=== PATIENT | female | born 2000 | race Caucasian/White ===

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

== ENCOUNTER → 2020-08-16 14:25 | Outpatient (BNVA) | payer OTHER, SELFPAY | PROVIDERS: Family Provider Family Medicine; PCP Family Medicine; Visit Provider Nurse Practitioner Women's Health | DX: R30.0 Dysuria (principal); A60.00 Herpesviral infection of urogenital system, unspecified; A60.1 Herpesviral infection of perianal skin and rectum | CPT/HCPCS: 80053; 81000 ==

== ENCOUNTER → 2022-06-26 13:45 | Outpatient (BNVA) | payer OTHER, MEDICAID, SELFPAY | PROVIDERS: Family Provider Family Medicine; PCP Family Medicine; Visit Provider Nurse Practitioner Women's Health | DX: N92.6 Irregular menstruation, unspecified (principal) | CPT/HCPCS: 81025 ==

== ENCOUNTER → 2022-07-17 10:51 | Outpatient (BNVA) | payer OTHER, MEDICAID, SELFPAY | PROVIDERS: Family Provider Family Medicine; PCP Family Medicine; Visit Provider Obstetrics & Gynecology | DX: Z36.87 Encounter for antenatal screening for uncertain dates (principal) | CPT/HCPCS: 76801 ==

== ENCOUNTER → 2022-07-31 14:39 | Outpatient (BNVA) | payer OTHER, MEDICAID, SELFPAY | PROVIDERS: Family Provider Family Medicine; PCP Family Medicine; Visit Provider Obstetrics & Gynecology | DX: Z34.90 Encounter for supervision of normal pregnancy, unspecified, unspecified trimester (principal); Z12.4 Encounter for screening for malignant neoplasm of cervix | CPT/HCPCS: 80307; 81000; 83036; 85027; 86592; 86762; 86803; 86850; 86900; 87086; 87340; 87491; 87591; 87661; 87806; 88175 ==

== ENCOUNTER → 2022-09-11 08:21 | Outpatient (BNVA) | payer OTHER, MEDICAID, SELFPAY | PROVIDERS: Family Provider Family Medicine; PCP Family Medicine; Visit Provider Obstetrics & Gynecology | DX: Z36.9 Encounter for antenatal screening, unspecified (principal) | CPT/HCPCS: 76805 ==

== ENCOUNTER → 2022-10-09 09:30 | Outpatient (BNVA) | payer OTHER, MEDICAID, SELFPAY | PROVIDERS: Family Provider Family Medicine; PCP Family Medicine; Visit Provider Nurse Practitioner Women's Health | DX: Z34.90 Encounter for supervision of normal pregnancy, unspecified, unspecified trimester (principal) | CPT/HCPCS: 82950; 84315 ==

== ENCOUNTER 2022-10-29 19:38 | Outpatient (CLI) | payer OTHER, MEDICAID, SELFPAY ==
[2022-10-29] VITALS (9 sets, daily range): BP systolic 104–119; BP diastolic 55–64; PULSE 72–85; RESP 17–18; TEMP 36.4; BMI 30.1
[2022-10-29 20:39] LABS: Add Urine Microscopic? NO; Charge for UA Resulting for Rev
[2022-10-29 20:40] LABS: Basophils % 0.2 %; Eosinophils % 0.3 %; Hematocrit 34.2 % (37.0-47.0); Hemoglobin 11.8 g/dL (11.5-15.3); Lymphocytes # 1.6 10^3/uL (0.8-4.8); Lymphocytes % 25.7 %; Mean Corpuscular HGB Conc 34.5 g/dL (30.0-36.0); Mean Corpuscular Hemoglobin 30.4 pg (28.0-34.0); Mean Corpuscular Volume 88.1 fl (81-99); Mean Platelet Volume 10.2 fL (7.4-10.4); Monocytes # 0.4 10^3/uL (0.2-0.9); Monocytes % 6.1 %; Neutrophils # 4.06 10^3/uL (1.8-7.7); Neutrophils % 67.5 %; Nucleated Red Blood Cells % 0 %; Platelet Count 210 10^3/cmm (130-400); Red Blood Count 3.88 10^6/uL (4.1-5.3); Red Cell Distribution Width 13.2 % (12.1-15.1)
[2022-10-29 20:57] LABS: Alanine Aminotransferase 9 U/L (0-33); Albumin Level 3.5 g/dL (3.5-5.2); Alkaline Phosphatase 67 U/L (35-105); Anion Gap 11.2 (5-19); Aspartate Amino Transferase 13 U/L (0-32); Blood Urea Nitrogen 6 mg/dL (6-20); Calcium 8.6 mg/dL (8.5-10.5); Carbon Dioxide 24 mmol/L (22-29); Chloride 105 mmol/L (98-107); Globulin 2.4 g/dL (1.3-4.6); Glomerular Filtration Rate 199.6 mL/min (90-130); Glucose 95 mg/dL (65-115); Osmolality Calculated 281 mOsm/kg (285-295); Potassium 3.2 mmol/L (3.5-5.1); Sodium 137 mmol/L (136-145); Total Bilirubin 1.3 mg/dL (0.15-1.2); Total Protein 5.9 g/dL (6.6-8.7); Uric Acid 3.1 mg/dL (2.4-5.7)
[2022-10-29 21:01] LABS: Urine Creatinine 91 mg/dL (28-217); Urine Protein Random 10 mg/dL
[2022-10-29 21:07] LABS: UPRO/UCREAT Ratio 0.11 mg/mg CR
[2022-10-29 21:11] LABS: Bilirubin Urine Neg (Negative); Blood Urine Neg (Negative); Glucose Urine UA Norm (Normal); Ketones Urine Negative (Negative); Leukocyte Esterase Urine Negative (Negative); Nitrate Urine Negative (Negative); Protein Urine Neg (Negative); Specific Gravity, Urine 1.015 (1.005-1.030); Urine Appearance Clear (CLEAR); Urine Color Yellow (Yellow); Urobilinogen Urine 4 mg/dL (Negative); pH Urine 7 (5-7)
== END 2022-10-29 21:24 | disposition home or self-care (01) ==
LOC: OPOB 19:39 → OBGYN 19:40
PROVIDERS: Family Provider Family Medicine; PCP Family Medicine; Visit Provider Obstetrics & Gynecology
DX: O16.9 Unspecified maternal hypertension, unspecified trimester (principal); Z3A.00 Weeks of gestation of pregnancy not specified; R51.9 Headache, unspecified
CPT/HCPCS: 36415; 59025; 80053; 81003; 82570; 84156; 84550; 85025; 99211

== ENCOUNTER → 2022-11-13 08:40 | Outpatient (BNVA) | payer OTHER, MEDICAID, SELFPAY | PROVIDERS: Family Provider Family Medicine; PCP Family Medicine; Visit Provider Nurse Practitioner Women's Health | DX: O26.899 Other specified pregnancy related conditions, unspecified trimester (principal); Z67.91 Unspecified blood type, Rh negative; A60.1 Herpesviral infection of perianal skin and rectum | CPT/HCPCS: 84315; 85025; 86850 ==

== ENCOUNTER 2022-11-15 15:19 | Outpatient (CLI) | payer OTHER, MEDICAID, SELFPAY ==
[2022-11-15 19:24] LABS: Total Volume, Urine 1500 mL
[2022-11-16 21:07] LABS: Urine Total Protein 9.7 mg/dL (0-150); Urine Total Protein 24 Hour 145.5 mg/24hr (0-150)
== END 2022-11-15 15:20 | disposition home or self-care (01) ==
PROVIDERS: PCP Family Medicine; Visit Provider Nurse Practitioner Women's Health
DX: Z34.90 Encounter for supervision of normal pregnancy, unspecified, unspecified trimester (principal)
CPT/HCPCS: 84156

== ENCOUNTER 2023-01-03 16:30 | Outpatient (CLI) | payer OTHER, MEDICAID, SELFPAY ==
[2022-10-29 19:59] VITALS: RESP 18
[2023-01-03] VITALS (9 sets, daily range): BP systolic 119–140; BP diastolic 62–80; PULSE 72–83; RESP 18; BMI 32.3
[2023-01-03 17:45] LABS: Add Urine Culture? No; Bacteria Urine 2+ /hpf; Bilirubin Urine Neg (Negative); Blood Urine Neg (Negative); Glucose Urine UA Norm (Normal); Ketones Urine 1+ (Negative); Leukocyte Esterase Urine Negative (Negative); Nitrate Urine Negative (Negative); Protein Urine Neg (Negative); Urine Appearance Hazy (CLEAR); Urine Color Yellow (Yellow); Urobilinogen Urine 4 mg/dL (Negative); pH Urine 6.5 (5-7)
--- NOTE | 2023-01-03 18:43 | P.TNLD_ITS ---
OB L&D Triage Visit Information: Date of evaluation: 01/03/23 Comments/Additional reason(s) for visit: 22-year-old female G1, P0 observed in labor and delivery with complaints of upper abdominal pain, patient points to right side of uterus. She admits to good movement, denies leakage of fluid or vaginal bleeding. She denies nausea vomiting, headaches or blurred vision, chest pain or shortness of breath. 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 EFM?category 1 with occasional contraction UA reviewed VSS, afebrile Abdomen?soft, no guarding, negative CVA tenderness Extremities?no edema negative Homans' sign Evaluation: Variability: Moderate (11-25) monitor accelerations: Present 15x15 monitor decelerations: None Laboratory results: Laboratory Tests 01/03/23 17:00 Urine Color Yellow Urine Appearance Hazy A Urine pH 6.5 Ur Specific Gravit y 1.020 Urine Protein Neg Urine Glucose (UA) Norm Urine Ketones 1+ H Urine Blood Neg Urine Nitrate Negative Urine Bilirubin Neg Urine Urobilinogen 4 H Ur Leukocyte Debbie ase Negative Urine RBC None Urine WBC None Ur Squamous Epith Cells 10-15 H Amorphous Sediment Not Reportable Urine Bacteria 2+ H Vital signs: Vital Signs - 24 hr 01/03/23 16:46 01/03/23 17:01 01/03/23 17:16 Pulse Rate 74 80 75 Blood Pressure 136/80 140/66 124/67 01/03/23 17:31 01/03/23 17:46 01/03/23 18:01 Pulse Rate 83 73 77 Blood Pressure 134/69 126/62 121/64 01/03/23 18:17 01/03/23 18:31 Pulse Rate 74 72 Blood Pressure 119/63 126/72 Care AGUILA Calculator Estimated Delivery Date Method Current WG Current Estimate 02/04/23 Ultrasound #2 35w 3d Other Estimates 02/07/23 LMP (Certain) 35w 0d 02/03/23 Ultrasound #1 35w 4d Specific Issues/Plans * Genital herpes; plan suppression at 36 weeks * Rh NEGATIVE Final Diagnosis Final Diagnosis (1) Supervision of normal : Plan: A. Nonspecific abdominal pain P. Discharge to home, counseled patient on no heavy lifting pushing or pulling. If pain continues or becomes increasingly worse patient is to return to labor and delivery. Patient is to follow-up as scheduled with her management trainee for continued care. Status: Acute Code(s): Z34.90 - Encounter for supervision of normal , unspecified, unspecified trimester Coding Level of Care Code Acute Code for Chg Fwd Diagnoses Supervision of normal Z34.90
[2023-01-03 18:44] LABS: Urine Creatinine 103 mg/dL (28-217); Urine Protein Random 18 mg/dL
[2023-01-03 18:47] LABS: UPRO/UCREAT Ratio 0.17 mg/mg CR
--- NOTE | 2023-01-03 18:48 | PC.NURSE ---
[address] SAM URINE PROTEIN / CRET RATIO OF .17
== END 2023-01-03 18:49 | disposition home or self-care (01) ==
LOC: OPOB 16:35 → OBGYN 16:36
PROVIDERS: Obstetrics & Gynecology; PCP Family Medicine; Visit Provider Obstetrics & Gynecology
DX: O26.899 Other specified pregnancy related conditions, unspecified trimester (principal); Z3A.00 Weeks of gestation of pregnancy not specified; R10.11 Right upper quadrant pain
CPT/HCPCS: 12345; 59025; 81001; 82570; 84156; 99211

== ENCOUNTER → 2023-01-08 10:00 | Outpatient (BNVA) | payer MEDICAID, SELFPAY | PROVIDERS: PCP Family Medicine; Visit Provider Nurse Practitioner Women's Health | DX: Z34.90 Encounter for supervision of normal pregnancy, unspecified, unspecified trimester (principal) | CPT/HCPCS: 80053; 84315; 84550; 85025; 87081 ==

== ENCOUNTER 2023-01-09 11:35 | Outpatient (CLI) | payer MEDICAID, SELFPAY ==
[2023-01-09 13:40] LABS: Total Volume, Urine 1450 mL; Urine Total Protein 24 Hour 188.5 mg/24hr (0-150)
== END 2023-01-09 11:36 | disposition home or self-care (01) ==
LOC: LAB 11:37
PROVIDERS: PCP Family Medicine; Visit Provider Nurse Practitioner Women's Health
DX: O16.3 Unspecified maternal hypertension, third trimester (principal); Z3A.00 Weeks of gestation of pregnancy not specified
CPT/HCPCS: 84156

== ENCOUNTER 2023-01-11 14:46 | Outpatient (CLI) | payer MEDICAID, SELFPAY ==
[2023-01-11 14:45] VITALS: BMI 31.4
--- NOTE | 2023-01-11 14:53 | US_ITS ---
WS: [id number] BIOPHYSICAL PROFILE AMNIOTIC FLUID HISTORY: WELLBEING COMPARISON: 09/11/2022 position: Vertex. Cardiac activity: 131 bpm. Cervix: Poorly visualized due to head. Placenta: Posterior and fundal, no previa. Placenta grade: 1 Parameters are as follows: Breathin Movement: 2 Tone: 2 Fluid volume: 2 Amniotic Fluid Index: 13.2 cm; single deep vertical pocket 3.8 cm. US/US OB BPP wo NST 08699 IMPRESSION: 1. Biophysical profile score: 8/8. 2. Normal amniotic fluid.
[2023-01-11 15:00] VITALS: BP 135/75; PULSE 66
[2023-01-11 15:33] VITALS: BP 137/84; PULSE 69
[2023-01-11 15:54] VITALS: BP 132/84; PULSE 73
[2023-01-11 15:57] LABS: Urine Creatinine 138 mg/dL (28-217); Urine Protein Random 20 mg/dL
[2023-01-11 16:00] LABS: UPRO/UCREAT Ratio 0.14 mg/mg CR
[2023-01-11 16:13] VITALS: BP 119/70; PULSE 72
[2023-01-11 16:21] VITALS: BP 119/70; PULSE 72
== END 2023-01-11 16:23 | disposition home or self-care (01) ==
LOC: OPOB 14:47 → OBGYN 14:47
PROVIDERS: PCP Family Medicine; Visit Provider Obstetrics & Gynecology
DX: O24.419 Gestational diabetes mellitus in pregnancy, unspecified control (principal); Z3A.00 Weeks of gestation of pregnancy not specified
CPT/HCPCS: 36415; 59025; 76819; 82570; 84156; 84315; 99211

== ENCOUNTER 2023-01-14 06:20 | Inpatient (IN) | payer OTHER, MEDICAID, SELFPAY ==
[2023-01-14] VITALS (47 sets, daily range): BP systolic 104–151; BP diastolic 55–93; PULSE 61–87; RESP 16; TEMP 36.2–36.6; BMI 31.6
[2023-01-14 07:13] LABS: Basophils % 0.3 %; Eosinophils % 0.5 %; Hematocrit 33.7 % (37.0-47.0); Hemoglobin 11.2 g/dL (11.5-15.3); Lymphocytes # 1.7 10^3/uL (0.8-4.8); Lymphocytes % 25.7 %; Mean Corpuscular HGB Conc 33.2 g/dL (30.0-36.0); Mean Corpuscular Hemoglobin 27.9 pg (28.0-34.0); Mean Corpuscular Volume 83.8 fl (81-99); Monocytes # 0.5 10^3/uL (0.2-0.9); Monocytes % 8.2 %; Neutrophils % 64.8 %; Nucleated Red Blood Cells % 0 %; Platelet Count 230 10^3/cmm (130-400); Red Blood Count 4.02 10^6/uL (4.1-5.3); Red Cell Distribution Width 13.3 % (12.1-15.1); White Blood Count 6.5 10^3/uL (4.0-10.0)
[2023-01-14] MEDS: ondansetron 2 mg/ML SDV 2 mL 4 MG IVP (07:56)
[2023-01-14] MEDS: miSOPROStol 100 mcg tablet 25 MCG VAGINAL ×3 (07:57→17:22)
[2023-01-14] MEDS: dextrose 5%-lactated ringers 1,000 ML 125 ML IV ×2 (08:00→20:16)
[2023-01-14] MEDS: acetaminophen 325 mg Tablet 650 MG PO (22:41)
[2023-01-15] VITALS (44 sets, daily range): BP systolic 106–182; BP diastolic 56–102; PULSE 50–141; RESP 15–19; TEMP 36.7–37; O2SAT 98–99
[2023-01-15] MEDS: fentaNYL 50 mcg/mL INJ 2mL IVP ×5 (00:12→07:17)
[2023-01-15] MEDS: lactated ringers 1,000 ML 999 ML IV ×2 (00:14→10:49)
[2023-01-15] MEDS: hyDROXYzine 25 mg Capsule 50 MG PO ×2 (01:20→07:18)
[2023-01-15] MEDS: dextrose 5%-lactated ringers 1,000 ML 125 ML IV (05:38)
--- NOTE | 2023-01-15 08:08 | P.PN_ITS ---
Subjective Subjective: 20-year-old female with estimated stational age at 37 weeks with hypertension. Referring increased contractions pain, and requested an epidural. Vitals/I&O/Wt Last Vital Signs Temp 97.9 F 01/14/23 15:16 Pulse 78 01/15/23 08:25 Resp 15 01/15/23 07:17 BP 127/69 01/15/23 08:25 O2 Del Method 01/14/23 06:00 01/14/23 01/15/23 01/15/23 22:59 06:59 14:59 Intake Total 1168.75 / 1168.75 1831.25 / 3000.00 Balance 1168.75 / 1168.75 1831.25 / 3000.00 Weight last 48 hrs Weight 94.347 kg Physical Exam Narrative: GA: Alert and oriented ?3. Lungs: Clear to auscultation bilaterally. Heart: Regular rhythm and rate. Abdomen: Gravid, full the height equals dates, nontender. RECRUITING ASSOCIATE: SVE; dilation: 5 cm, effacement: 80%, station: +1, presentation: Cephalic, membranes: Intact. Extremities: no edema, no cyanosis, no calves pain. heart tracing: Basal rate: 140's bpm, Variability: moderate, Accelerations: present, Decelerations: absent, Contraction: q3min. Data 01/14/23 06:15 A&P Assessment and plan (1) Active labor at term: Mrs. Dale 22-year-old female with an estimated stational age at 37 weeks, complicated by gestational hypertension, was admitted for induction, misoprostol was given for cervical ripening but had a slow response and was allowed to to rest overnight. She complained of increased pelvic pain. Epidural was ordered. heart tracing category 1. (2) Gestational hypertension: (3) Rh negative status during : Attestations Medical Necessity Statement*: In my professional opinion poor admitting diagnosis Coding Level of Care Code Acute Code for Chg Fwd Diagnoses Active labor at term Gestational hypertension O13.9 Rh negative status during O26.899; Z67.91
--- NOTE | 2023-01-15 09:05 | ANES.PREANE2 ---
Pre-Anesthetic Assessment Height/Weight: Height 1.73 m Weight 94.347 kg Temp Pulse Resp BP Pulse Ox O2 Del Method 97.9 F 76 15 139/63 98 01/14/23 15:16 01/15/23 09:01 01/15/23 07:17 01/15/23 09:01 01/15/23 08:54 01/14/23 06:00 Epidural Familial anesthetic complications: None Was Beta Vanessa taken within 24 hours: N/A Was Clonidine taken within 24 hours: N/A Social No alcohol and No tobacco Exam alert, oriented x 3, clear to auscultation bilaterally and regular rate & rhythm Airway Mallampati: Class II Dentition: full CV/HEM Hypertension Anesthetic Plan ASA status: 2 Anesthesia: Regional (specify below) Risk of > 500 ml blood loss (7ml/kg in children): Yes, adequate IV access and fluids planned Medications/Allergies Home Medications Medication Instructions Recorded Confirmed Last Taken Type prenat.vits,shane,pws-vtjb-xcxul 1 tab PO DAILY 06/26/22 01/14/23 01/13/23 History Allergies Allergy/AdvReac Type Severity Reaction Status Date / Time metronidazole Allergy ALGY-Rash Verified 01/11/23 13:39 Penicillins Allergy ALGY-Rash Verified 01/11/23 13:39 Current Medications Generic Name Dose Route Start Last Admin Trade Name Durgaq PRN Reason Stop Dose Admin Acetaminophen 650 mg 01/14/23 07:36 01/14/23 22:41 Acetaminophen 325 Mg Tablet PO 650 mg Q6H PRN Administration Mild pain or temp > 100.4 Fentanyl 25 - 100 mcg 01/14/23 07:36 01/15/23 07:17 Fentanyl 50 Mcg/Ml Inj 2ml IVP 100 mcg Q1H PRN Administration SEVERE PAIN Hydroxyzine Pamoate 50 mg 01/14/23 07:36 01/15/23 07:18 Hydroxyzine 25 Mg Capsule PO 50 mg QID PRN Administration sleep, agitation or itching Dextrose/Lactated Ringer's 1,000 mls @ 125 mls/hr 01/14/23 07:45 01/15/23 05:38 Dextrose 5%-Lactated Ringers IV 125 mls/hr .Q8H ANTONINA Administration Lactated Ringer's 1,000 mls @ 999 mls/hr 01/14/23 07:36 01/15/23 01:15 Lactated Ringers IV Infused .Q1H1M PRN Infusion Per L&D Rescitation Protocol Vancomycin HCl 1,900 mg/ 500 mls @ 333.333 mls/hr 01/15/23 09:00 01/15/23 08:52 Sodium Chloride IV 333.33 mls/hr Q8H ANTONINA Administration Ondansetron HCl 4 mg 01/14/23 07:36 01/14/23 07:56 Ondansetron 2 Mg/Ml Sdv 2 Ml IVP 4 mg Q4H PRN Administration NAUSEA AND VOMITING PFSH Anesthesia Medical History Genital herpes No pertinent past medical history neghx: htn,dm,thyroid,DVT/PE PCP: none Surgical History H/O oral surgery 2008,2015 Hx of knee surgery (~06/01/21) L knee, ACL repair Family History Mother Ovarian cancer dx age 20-- did not a hyst or radiation/chemo; had never required this Grandfather Diabetes Maternal Hypertension Maternal Grandmother Diabetes Maternal Stroke Maternal Hypertension Maternal Denies family history of Colon cancer Heart disease Hypercholesteremia Breast cancer Uterine cancer Thyroid disease Social History Smoking and tobacco status: never smoked Female Reproductive History : 1 Data Anesthesia 01/14/23 06:15 Short CBC 01/14/23 Range/Units 06:15 WBC 6.5 (4.0-10.0) 10^3/uL Hgb 11.2 L (11.5-15.3) g/dL Hct 33.7 L (37.0-47.0) % MCV 83.8 (81-99) fl Plt Count 230 (130-400) 10^3/cmm Neut % (Auto) 64.8 % Neut # (Auto) 4.20 (1.8-7.7) 10^3/uL Cardiac Studies: No Data to Display Anesthesia Procedures Epidural Time Out Performed: Yes Consents Signed: Procedure Consent Consent: requested by attending/covering physician, from patient, from other, risks and benefits reviewed and patient agrees to proceed Lumbar Level: L3-L4 Epidural position: sitting Epidural procedure: sterile prep of area, 1% lidocaine to numb the area, 18 g needle, negative for paresthesia passed, neg for paresthesia, test dose given, 1.5% xylocaine 1:200k epi (5 cc), 0.2% Ropivacaine bolus ml (5), placed PCEA, no systemic response, sterile dressing applied, L.U.D. no apparent complications and 0.2% Ropiavacaine @ mls/hr (13) Additional Comments: IDALIA ast 5 cm, threaded to 11 cm
--- NOTE | 2023-01-15 09:42 | P.PCNOB_ITS ---
Delivery Note: Date of delivery: January 15, 2023 Pre-delivery diagnoses: Term . Nonreassuring status Gestational hypertension. Rh-. History of herpes Post-delivery diagnoses: Term delivered. Nonreassuring status Gestational hypertension. Rh-. History of herpes Procedure: Vacuum-assisted vaginal delivery Delivering Physician: Don Brizuela MD Estimated blood loss (mL): 300 Delivery: The patient was noted to be complete and pushing, so was placed in the dorsal lithotomy position, prepped and draped in the usual sterile fashion for a vaginal delivery. Pt. Noted to have epidural anesthesia. Decision was made to apply the Kiwi vacuum @ 37 weeks for the above indications. The mother was informed heart rate with decelarations and asked for her consent for application of the vaccum. A Red daja cath had been used to insure the bladder was emptied. Adequate anesthesia was confirmed but epidural was not optimal and a pudendal block was administer. The edges of the cup of the Kiwi vacuum were placed approximately 3cm from the anterior fontanelle, and just at the edge of the posterior fontanelle. The center of the cup was placed over the flexion point. The edges of the cup were swept with a finger to ensure that no maternal tissues were entrapped. After correct placement of the cup was confirmed, vacuum pressure was raised to 500-600 mmHg. Gentle traction along the axis of the pelvic curve down then up, was applied in concert with maternal pushing. 3 # applications. 2# pop-offs. After head delivered, the vacuum pressure released and was taken off the baby's head. Pt. Noted to have epidural anesthesia. At 0931 the patient delivered a viable (gestational age) fetus weighing 3165 g with scores of 7 and 9 at one and five minutes, respectively. The vertex was delivered vacuum assisted over intact perineum. The patient was asked to push and the head delivered in the ALIN position, over an intact perineum. A nuchal cord was checked and 1 noted, and believed around head as necessary. The anterior shoulder delivered easily and the posterior shoulder followed. The remainder of the was easily delivered and the oropharynx and nasopharynx was again bulb suctioned. The was noted to have spontaneous cry and spontaneous movement of all four extremities. The cord was clamped x 2 and cut and noted to have 2 arteries and one vein. The infant was passed to the warmer where nursing and dormitory counselor personnel were in attendance. Cord blood sample was then obtained. The placenta delivered intact spontaneously and the uterus was explored. Pitocin 20 units in 1L LR was initiated. Examination of the cervix, vagina and perineal areas were inspected for lacerations and did not reveal any lacerations. A vaginal pack was then placed. Examination of the perineum showed no laceration. The vaginal pack was then removed. The patient tolerated this procedure well, and recovered in L&D with her infant in their LDR room. All sponge and needle counts were correct. History History History 1 Term 0 0 Miscarriages/Ectopic 0 Living Children 0 Coding Level of Care Code Acute Code for Chg Fwd
[2023-01-15] MEDS: ibuprofen 800 mg tablet PO ×2 (16:08→21:31)
[2023-01-15] MEDS: HYDROcodone-acetaminophen 5-325 mg Tablet PO (16:45)
[2023-01-15] MEDS: docusate sodium 100 mg Capsule PO (18:04)
[2023-01-15 21:25] LABS: Hematocrit 29.7 % (37.0-47.0); Hemoglobin 9.8 g/dL (11.5-15.3); Mean Corpuscular Volume 84.9 fl (81-99); Mean Platelet Volume 10.5 fL (7.4-10.4); Platelet Count 211 10^3/cmm (130-400); Red Cell Distribution Width 13.3 % (12.1-15.1); White Blood Count 11.4 10^3/uL (4.0-10.0)
[2023-01-15] MEDS: lanolin oint 7 gm 1 APPLIC TOPICAL (21:31)
[2023-01-15] MEDS: benzocaine-menthol 78 gm Canister 1 SPRAY TOPICAL (21:32)
[2023-01-16 03:19] VITALS: BP 121/74; PULSE 91; RESP 18; TEMP 36.4; O2SAT 98
--- NOTE | 2023-01-16 08:10 | ANE.PACU2 ---
Inpatient post-anesthesia follow up: Airway intact: Yes Vital signs: Temperature 98.3 F Pulse Rate 79 Respiratory Rate 15 Blood Pressure 128/83 Pulse Oximetry 98 Oxygen Delivery Me thod Room Air Oxygen Flow Rate Fraction of Inspir ed Oxygen Hydration adequate: Yes Nausea and vomiting: No Pain level: 1 Mental status: Baseline
[2023-01-16] MEDS: docusate sodium 100 mg Capsule PO (09:33)
[2023-01-16] MEDS: ibuprofen 800 mg tablet PO ×2 (09:33→16:46)
[2023-01-16] MEDS: prenatal vitamin Capsule 1 CAP PO (09:33)
[2023-01-16 09:35] VITALS: BP 134/86; PULSE 86; RESP 18; TEMP 36.8
--- NOTE | 2023-01-16 14:15 | PM.OBGYDC ---
Discharge Providers ETHNOARCHAEOLOGY PROFESSOR Date of Admission: 01/14/23 06:20 Date of Discharge: 01/16/23 Attending Provider at Admission: Don Brizuela MD Attending Provider at Discharge: Don Brizuela MD Primary ETHNOARCHAEOLOGY PROFESSOR: Don Brizuela MD Primary Care Provider: Catalina Linder MD Diagnoses at Discharge Discharge Diagnosis (1) Active labor at term: Status: Acute (2) Gestational hypertension: Status: Acute (3) Rh negative status during : Status: Acute (4) Term delivered: Status: Acute Reason for Visit Reason for Visit: induction of labor Brief History: Mrs. Dale 22-year-old female G1, P1. care complicated by hypertension, and Rh-. Hospital Course Hospital Course Mrs. Dale 22-year-old female G1, P0 with an estimated gestational age at 37 weeks. complicated by hypertension. She was admitted for induction. Received 3 doses of misoprostol for cervical ripening, had a rapid progression of labor, but not sure status at time of pushing led to a vacuum assisted vaginal delivery without complications. observation was uneventful. She is afebrile hemodynamically stable post delivery day 1. Tolerating diet well. Ambulating without difficulty. She was counseled regarding pelvic rest for 6 weeks (no sex, no tampons, no vaginal douches). Return to the emergency room if any fever, increased bleeding or pain. Information Peripartum Data: Delivery Method: Vaginal Physical Exam Narrative: GA; alert and oriented x 3 HEENT: normal Breasts: engorged Nipples - skin intact Lungs; clear to auscultation Heart: regular rhythm, no murmurs. Abd: Appropriately tender. BS+. Uterine fundus below umbilicus. No Fundal Tenderness. Perineum: normal lochia. Extremities: no edema, no cyanosis, no tenderness. History History History 1 Term 0 0 Miscarriages/Ectopic 0 Living Children 0 Discharge Data Studies Completed and Pending Laboratory Results WBC 11.4 10^3/uL (4.0-10.0) H 01/15/23 21:20 RBC 3.50 10^6/uL (4.1-5.3) L 01/15/23 21:20 Hgb 9.8 g/dL (11.5-15.3) L 01/15/23 21:20 Hct 29.7 % (37.0-47.0) L 01/15/23 21:20 MCV 84.9 fl (81-99) 01/15/23 21:20 MCH 28.0 pg (28.0-34.0) 01/15/23 21:20 MCHC 33.0 g/dL (30.0-36.0) 01/15/23 21:20 RDW 13.3 % (12.1-15.1) 01/15/23 21:20 Plt Count 211 10^3/cmm (130-400) 01/15/23 21:20 MPV 10.5 fL (7.4-10.4) H 01/15/23 21:20 Neut % (Auto) 64.8 % 01/14/23 06:15 Lymph % (Auto) 25.7 % 01/14/23 06:15 Newton % (Auto) 8.2 % 01/14/23 06:15 Eos % (Auto) 0.5 % 01/14/23 06:15 Baso % (Auto) 0.3 % 01/14/23 06:15 Neut # (Auto) 4.20 10^3/uL (1.8-7.7) 01/14/23 06:15 Lymph # (Auto) 1.7 10^3/uL (0.8-4.8) 01/14/23 06:15 Newton # (Auto) 0.5 10^3/uL (0.2-0.9) 01/14/23 06:15 Eos # (Auto) 0.0 10^3/uL (0.0-0.8) 01/14/23 06:15 Baso # (Auto) 0.0 10^3/uL (0.0-0.1) 01/14/23 06:15 Nucleated RBC % (auto) 0 % 01/14/23 06:15 Nucleated RBCs # 0.0 /100WBC 01/14/23 06:15 Blood Type O Negative 01/14/23 06:15 Rho(D) Type Negative 01/14/23 06:15 Antibody Screen Positive 01/14/23 06:15 Antibody Identification Anti-D 01/14/23 06:15 Screen Negative (Negative) 01/15/23 21:20 Vitals Last Vital Signs Temp 98.2 F 01/16/23 09:35 Pulse 86 01/16/23 09:35 Resp 18 01/16/23 09:35 BP 134/86 01/16/23 09:35 Pulse Ox 98 01/16/23 03:19 O2 Del Method 01/16/23 09:35 Discharge Plan Discharge Patient Disposition: Home Condition: Stable Prescriptions: New docusate sodium [Colace] 100 mg capsule 100 mg PO BID Qty: 60 0RF ferrous sulfate [Iron (ferrous sulfate)] 325 mg (65 mg iron) tablet 325 mg PO BID Qty: 60 0RF acetaminophen 325 mg capsule 325 mg PO Q4H PRN (Reason: fever or pain) Qty: 60 0RF ibuprofen 800 mg tablet 800 mg PO TID PRN (Reason: pain) Qty: 60 0RF Continued prenat.vits,shane,szo-wctn-xepga Tablet 1 tab PO DAILY Discharge Orders: Discharge Order (Routine); Ordered 01/16/23 Ordered By: Don Brizuela Referrals: Don Brizuela MD [Physician] - 6 Weeks (2 weeks follow-up for blood pressure check) Discharge Diet: Usual diet Discharge Activity: Limit activity as instructed Patient Instructions: Depression (DC), Bleeding (DC), Preeclampsia and Eclampsia After Delivery (GEN), Hemorrhage (DC), OB Discharge Report, OB Food/Drug Interaction Guide, OB Care at Home, Opioid Safety, OB Home Care, OB Vaginal Deliveries - [facility] Activity Restrictions/Additional Instructions: 1. Please call [facility] on next working day to make your post appointment in 6 weeks blood pressure check in 2 weeks. 2. Please stay home until you come back to the clinic on first post-operative check up. 3. Please follow instructions on your medications CAREFULLY. 4. If you have abdominal incision, do not cover it unless dressing is necessary because of drainage. OK to shower, but avoid bath. Leave steri-strips until they fall off. If they are still on one week after surgery, you may remove them. 5. If you had vaginal surgery or vaginal repair, Dr. Brizuela may instruct you to take SITZ bath. 6. Yellow, blood tinged odorous vaginal discharge is usually normal after hysterectomy or vaginal surgeries. 7. No sexual intercourse, tampons, or douches until you are completely released from the post-operative care. 8. Avoid constipation by eating right and maybe using some Metamucil or Milk of Magnesia. 9. All prescription refills are given during the working hours. Please do no wait till it runs out. Call the clinic at [phone] before your medication runs out. The clinic will get in touch with your doctor to prescribe medications if necessary. 10. Please remain within 40 mile radius from our hospital because emergencies do happen now and then during the post-operative period. 11. If you have stairs at home, take one step at a time slowly and minimize the number of trips. It helps to stay in one floor for the next few days. No lifting except what you can lift by one hand until you are released from the post-operative care. 12. Driving is discouraged until you are well healed. It may be 3-4 weeks before you feel strong enough to drive. You should be able to turn and look through the rear window without pain and you should be able to push the brake pedal very hard without pain before you drive. No fast rules, but SAFETY should be your primary concern. DO NOT drive if you are on sedating medications such as narcotics. 13. Call the clinic (during working hours) to make urgent appointment or go to the Emergency room, if any of the following occurs: i. Vaginal bleeding becomes heavy, more than a period. ii. Incision becomes red and sore, or drains pus. iii. Your temperature is over 100.4 or you have chill. iv. IV site becomes red and swollen (a little ``knot?? is usually OK) v. Persistent nausea and vomiting vi. Persistent constipation or diarrhea vii. Rash or allergic reaction to medications. Discharge Attestations ETHNOARCHAEOLOGY PROFESSOR Time Spent in Discharge Care*: greater than 30 min Coding Level of Care Code Acute Code for Chg Fwd Diagnoses Active labor at term Gestational hypertension O13.9 Rh negative status during O26.899; Z67.91 Term delivered O80
[2023-01-16 17:19] VITALS: BP 128/83; PULSE 79; RESP 15; TEMP 36.8
[2023-01-16 17:20] VITALS: BP 128/83; PULSE 79; RESP 15; TEMP 36.8
== END 2023-01-16 16:53 | disposition home or self-care (01) | DRG 806 ==
LOC: OPOB 06:20 → OBGYN 06:25
PROVIDERS: Absent Provider Obstetrics & Gynecology; Admitting Provider Obstetrics & Gynecology; PCP Family Medicine; Visit Provider Obstetrics & Gynecology
DX: O36.0930 Maternal care for other rhesus isoimmunization, third trimester, not applicable or unspecified (principal); O98.32 Other infections with a predominantly sexual mode of transmission complicating childbirth; Z37.0 Single live birth; O13.4 Gestational [pregnancy-induced] hypertension without significant proteinuria, complicating childbirth; A60.00 Herpesviral infection of urogenital system, unspecified; O76 Abnormality in fetal heart rate and rhythm complicating labor and delivery; O69.2XX0 Labor and delivery complicated by other cord entanglement, with compression, not applicable or unspecified; Z3A.37 37 weeks gestation of pregnancy
CPT/HCPCS: 36415; 59025; 59409; 80503; 85025; 85027; 85460; 86850; 86870; 86900; 90384; 96372; 96374; 96376; 98960; J2405; J3010; J3370; J7040; J7120; J7121

== ENCOUNTER → 2023-03-05 08:55 | Outpatient (BNVA) | payer OTHER, MEDICAID, SELFPAY | PROVIDERS: PCP Family Medicine; Visit Provider Obstetrics & Gynecology | DX: Z39.2 Encounter for routine postpartum follow-up (principal); Z34.90 Encounter for supervision of normal pregnancy, unspecified, unspecified trimester; Z30.430 Encounter for insertion of intrauterine contraceptive device | CPT/HCPCS: 81025 ==

== ENCOUNTER → 2025-03-22 14:38 | Outpatient (BNVA) | payer OTHER, MEDICAID, SELFPAY | PROVIDERS: PCP Family Medicine; Visit Provider Nurse Practitioner Women's Health | DX: Z30.430 Encounter for insertion of intrauterine contraceptive device (principal) | CPT/HCPCS: 76830 ==